=== PATIENT | male | born 1945 | race Caucasian/White ===

== ENCOUNTER 2018-09-04 20:26 | Observation (INO) ==
[2018-09-04] MEDS ORDERED: Acetaminophen 325 MG TABLET PO ONE (22:44)
[2018-09-04] MEDS ORDERED: Tdap (Boostrix) Vaccine 0.5 ML SYRINGE IM ONE (22:44)
[2018-09-04 23:25] LABS: INR 1.2; Prothrombin Time 13.7 Seconds (9.4-12.1)
[2018-09-04 23:28] LABS: Activated Partial Thrombo Time 30.8 Seconds (26.0-36.0)
--- NOTE | 2018-09-04 23:57 | Emergency Department Note ---
Disposition Clinical Impression: Hematoma, Hemoglobin decreased Disposition: Admitted As Inpatient Condition: Good Lower Extremity Injury HPI - General Chief Complaint: ED Extremity Injury, Lower Stated Complaint: right leg injury Time Seen by Provider: 09/04/18 22:34 Source: patient, family Mode of arrival: private vehicle Limitations: no limitations Nursing Notes Reviewed: Yes Vital Signs Reviewed: Yes - History of Present Illness HPI Narrative: 73-year-old male presents emergency department for evaluation of leg injury after a fall. Patient states he tripped over a bucket of his tractor and he fell, scraping his samuels and bruising his distal lateral right thigh. Patient complaining of swelling, forming ecchymosis to the area. Patient states he is on Xarelto for anticoagulation, last dose was greater than 24 hours ago. Patient denies inability to walk, numbness, tingling, paresthesia. Past medical history includes A. fib, pacer, insulin-dependent diabetes with a insulin pump - Related Data Home Medications Medication Instructions Recorded Confirmed Acebutolol HCl 200 mg PO BID 09/05/18 09/05/18 Aspirin [[place] Aspirin EC] 1 tab PO DAILY 09/05/18 09/05/18 Finasteride [Proscar] 1 tab PO HS 09/05/18 09/05/18 Furosemide [Lasix] 20 mg PO DAILY 09/05/18 09/05/18 Furosemide [Lasix] 40 mg PO HS 09/05/18 09/05/18 Insulin ASPART [Novolog] 100 unit SQ ACHS PRN 09/05/18 09/05/18 Levothyroxine Sodium [Synthroid] 0.2 mg PO DAILY 09/05/18 09/05/18 Losartan [Cozaar] 50 mg PO DAILY 09/05/18 09/05/18 Potassium Chloride [Klor-Con 10] 2 tab PO DAILY 09/05/18 09/05/18 Rivaroxaban [Xarelto] 20 mg PO HS 09/05/18 09/05/18 Venlafaxine [Effexor] 75 mg PO BID 09/05/18 09/05/18 Xalatan 1 drop BOTH EYES HS 09/05/18 09/05/18 cloNIDine HCl [CloNIDine HCl] 0.1 mg PO ONCE PRN 09/05/18 09/05/18 Allergies Allergy/AdvReac Type Severity Reaction Status Date / Time Iodinated Contrast- Oral and Allergy Rash Verified 08/11/16 14:15 IV Dye [Iodinated Contrast Media - IV Dye] All systems ED: reviewed and negative except as stated. Review of Systems: As Per HPI Past Medical History - Past Medical History Attestation: Yes The following information was validated with the patient. Source: patient Medical history: Reports: diabetes, hyperlipidemia, hypertension Psychiatric history: Reports: no psych history - Social History Smoking Status: Never smoker Smokeless Tobacco Status: No Alcohol use: Reports: none Drug use: Reports: none Physical Exam - General Limitations: no limitations General appearance: alert, in no apparent distress - Head Head exam: atraumatic, normocephalic, normal inspection - Expanded Lower Extremity Exam Hip/Pelvis exam: Present: normal inspection, full ROM Upper leg exam: Present: tenderness (Site of edema, contusion), swelling, ecchymosis. Absent: abrasion, laceration, deformity 1 - Large amount of edema, forming ecchymotic area Knee exam: Present: normal inspection, full ROM Lower leg exam: Present: tenderness, abrasion Ankle exam: Present: normal inspection, full ROM Foot/toe exam: Present: normal inspection, full ROM Neurovascular/Tendon exam: Present: normal 2-point discrimination. Absent: pulse deficit, motor deficit, sensory deficit - Neurological Exam Neurological exam: Present: alert, oriented X3 - Psychiatric Psychiatric exam: Present: normal affect, normal mood - Skin Skin exam: Present: warm, dry, intact, normal color Course Course Narrative: Well-developed male no acute distress. Respirations are easy and even. Right lateral lower shortening noted with abrasions, no active bleeding. Right distal posterior thigh noted with a large developing hematoma with circumferential edema. Patient is neurovascularly intact, full range of motion. Patient's last dose of Xarelto greater then 24 hours ago, has a 5-9 hour half- life. We will obtain coagulation studies and monitor site. - Reevaluation(s) Reevaluation #1: Reevaluation of hematoma shows proximately doubling in size, and to speak tender to touch, centralization very tight. Area now extends down to posterior knee and up to thigh, not quite completely circumferential though appears to be making progress that way. Patient continues to not be in any distress. He continues to be neurovascularly intact with peripheral pulses present and strong. We will obtain a CBC to check hemoglobin. Case discussed with attending Dr. Frias is a 1 on face time with patient is agreeable plan of care. Time: 23:55 Reevaluation #2: CBC returns with a decreased hemoglobin at 10.3 and hematocrit 30.8, Elevated MCV and elevated RDW. Review of past hemoglobin shows stabilization in the high 13s. This decreases most likely due to the acute blood loss related to the hematoma. I did discuss these findings with the patient and his family, I did recommend the patient be admitted to the hospital for monitoring of hemoglobin and hematocrit and monitoring of developing hematoma. Patient is agreeable to staying in the hospital, at this time we will start an IV, obtain a type and screen, as well as a BMP and plan admission to the hospital for observation. Patient family are agreeable. Time: 01:03 Reevaluation #3: Spoke with hospitalist Dr. Almaguer, they would like for us to consult general surgeon as well for this case due to possible need for surgery should bleeding continue. I did speak with on-call surgeon Dr. Turcios who agrees with plan for admission and states that he will consult should the need arise. We have re- paged hospitalist at this time. [id number] to hospitalist, kings to admit Time: 01:45 Vital Signs Temperature 97.7 F 09/04/18 20:42 Pulse Rate 70 09/04/18 20:42 Respiratory Rate 16 09/04/18 20:42 Blood Pressure 127/77 09/04/18 20:42 O2 Sat by Pulse Oximetry 97 09/04/18 20:42 Temperature 97.7 F 09/04/18 22:30 Pulse Rate 70 09/05/18 02:34 Respiratory Rate 16 09/05/18 02:34 Blood Pressure 125/62 09/05/18 02:34 O2 Sat by Pulse Oximetry 98 09/05/18 02:34 Oxygen Delivery Oxygen Delivery Room Air Extremity Injury, Lower - Lab Data Result diagrams: 09/05/18 00:23 09/05/18 01:00 Lab Results 09/04/18 09/05/18 09/05/18 Range/Units 23:10 00:23 01:00 WBC 8.2 (4.3-11.1) K/mcL RBC 2.75 L (4.19-5.50) M/mcL Hgb 10.8 L (12.9-16.9) g/dL Hct 30.3 L (37.5-50.1) % MCV 110.2 H (83.0-100.0) fL MCH 39.3 H (28.0-33.3) pg MCHC 35.6 H (31.6-35.5) g/dL RDW 15.8 H (11.5-14.5) % Plt Count 165 (140-400) K/mcL MPV 10.2 (9.4-12.4) fL PT 13.7 H (9.4-12.1) Seconds INR 1.2 APTT 30.8 (26.0-36.0) Seconds Sodium 135 L (136-145) mEq/L Potassium 4.2 (3.5-5.1) mEq/L Chloride 99 (98-107) mEq/L Carbon Dioxide 29 (23-29) mEq/L BUN 35 H (8-23) mg/dL Creatinine 1.82 H (0.70-1.30) mg/dL Est GFR ( Amer) 44 L (> 60) Est GFR (Non-Af Amer) 37 L (> 60) BUN/Creatinine Ratio 19 (6-26) Glucose 330 H (70-105) mg/dL Calculated Osmolality 301 H (280-300) Calcium 9.2 (8.6-10.3) mg/dL Blood Type Antibody Screen 09/05/18 Range/Units 01:00 WBC (4.3-11.1) K/mcL RBC (4.19-5.50) M/mcL Hgb (12.9-16.9) g/dL Hct (37.5-50.1) % MCV (83.0-100.0) fL MCH (28.0-33.3) pg MCHC (31.6-35.5) g/dL RDW (11.5-14.5) % Plt Count (140-400) K/mcL MPV (9.4-12.4) fL PT (9.4-12.1) Seconds INR APTT (26.0-36.0) Seconds Sodium (136-145) mEq/L Potassium (3.5-5.1) mEq/L Chloride (98-107) mEq/L Carbon Dioxide (23-29) mEq/L BUN (8-23) mg/dL Creatinine (0.70-1.30) mg/dL Est GFR ( Amer) (> 60) Est GFR (Non-Af Amer) (> 60) BUN/Creatinine Ratio (6-26) Glucose (70-105) mg/dL Calculated Osmolality (280-300) Calcium (8.6-10.3) mg/dL Blood Type A NEGATIVE Antibody Screen NEGATIVE Attestation Statement - Attestation Attestation: Dr Frias note: Pt seen in conjunction w/ ANDREW Sethi; please see her charting for complete documentation; I spent face to face time w/ the pt and agree w/ the pt's treatment and disposition; hematoma s/p fall on Xarelto; compartments soft w/o n /v deficits; imaging unremarkable; drop in hemoglobin noted vs prior labs; will admit to trend serial hemoglobins and assure no further continued drop
[2018-09-05 00:33] LABS: Hematocrit 30.3 % (37.5-50.1); Hemoglobin 10.8 g/dL (12.9-16.9); Mean Corpuscular HGB Conc 35.6 g/dL (31.6-35.5); Mean Corpuscular Hemoglobin 39.3 pg (28.0-33.3); Mean Corpuscular Volume 110.2 fL (83.0-100.0); Mean Platelet Volume 10.2 fL (9.4-12.4); Platelet Count 165 K/mcL (140-400); Red Blood Count 2.75 M/mcL (4.19-5.50); Red Cell Distribution Width 15.8 % (11.5-14.5)
[2018-09-05 02:06] LABS: Calcium 9.2 mg/dL (8.6-10.3); Potassium 4.2 mEq/L (3.5-5.1)
[2018-09-05] MEDS ORDERED: Naloxone 0.4 MG/ML INJ IVP PRN ×2 (07:39→07:41)
[2018-09-05] MEDS ORDERED: *HR* OxyCODONE Immed Rel 5 MG TABLET PO PRN (07:41)
[2018-09-05] MEDS ORDERED: *HR* HYDROcodone/Acet 5/325 mg TABLET PO PRN (07:41)
[2018-09-05] MEDS ORDERED: INSULIN ASPART 100 UNIT SQ PRN (07:42)
--- NOTE | 2018-09-05 07:56 | General Surgery Consult Note ---
Date of Encounter: 09/05/18 Time of Encounter: 07:53 Assessment and Plan (1) Hematoma Current Visit: Yes Status: Acute 73M on xarelto for atrial fibrillation s/p mechanical fall with subsequent hematoma to R lateral thigh and abrasions to RLE; motor sensory intact, able to walk without difficulty; trend h/h - transfuse per primary; diet as tolerated if able to walk without difficulty and h/h stable, okay to discharge from surgery perspective restart xarelto after h/h stable and per primary team follw up in my clinic 2 weeks after discharge no acute surgery at present; general surgery will sign off; please call with any new questions or concerns History of Present Illness Consult date: 09/05/18 Reason for consult: other (RLE hematoma) History of present illness: 73-year-old h/o DM, on insulin pump, HLD, HTN, atrial fibrillation, on xarelto, who prents after mechanical fall resulting in abrasions to RLE as well as hematoma to R lateral thigh; There was swelling and bruising to the area. He does not report any parasthesia and he is able to bear weight and walk without difficulty. It was felt that the hematoma was increasing in size. General surgery was consulted for management recommendations. Past Med Surg Social Fam HX - Past Medical History Medical history: atrial fibrillation, diabetes, hyperlipidemia, hypertension Psychiatric history: no psych history - Past Surgical History Surgical History: hip replacement, pacemaker/AICD Additional surgical history: INSULIN PUMP - Social History Smoking Status: Former smoker Smokeless Tobacco Status: No Alcohol use: occasionally Drug use: none - Additional Family History Additional family history: non contributory Medications and Allergies Acebutolol HCl 200 mg PO BID 09/05/18 [History] Aspirin [[place] Aspirin EC] 1 tab PO DAILY 09/05/18 [History] Finasteride [Proscar] 1 tab PO HS 09/05/18 [History] Furosemide [Lasix] 20 mg PO DAILY 09/05/18 [History] Furosemide [Lasix] 40 mg PO HS 09/05/18 [History] Insulin ASPART [Novolog] 100 unit SQ ACHS PRN 09/05/18 [History] Levothyroxine Sodium [Synthroid] 0.2 mg PO DAILY 09/05/18 [History] Losartan [Cozaar] 50 mg PO DAILY 09/05/18 [History] Potassium Chloride [Klor-Con 10] 2 tab PO DAILY 09/05/18 [History] Rivaroxaban [Xarelto] 20 mg PO HS 09/05/18 [History] Venlafaxine [Effexor] 75 mg PO BID 09/05/18 [History] Xalatan 1 drop BOTH EYES HS 09/05/18 [History] cloNIDine HCl [CloNIDine HCl] 0.1 mg PO ONCE PRN 09/05/18 [History] 3 Allergy/AdvReac Type Severity Reaction Status Date / Time Iodinated Contrast- Oral and Allergy Rash Verified 08/11/16 14:15 IV Dye [Iodinated Contrast Media - IV Dye] Review of Systems All systems PM: 12 point ROS negative besides HPI findings General Surgery Exam Initial Vital Signs Temp Pulse Resp BP Pulse Ox 97.7 F 70 16 127/77 97 09/04/18 20:42 09/04/18 20:42 09/04/18 20:42 09/04/18 20:42 09/04/18 20:42 - General physical appearance no distress - Eyes normal ocular movement - ENT normocephalic - Neck no lymphadectomy - Respiratory normal expansion, normal respiratory effort - Cardiovascular Cardiovascular exam: Present: RRR - Abdomen Abdomen general surgery: Present: soft, non tender - Integumentary Integumentary general surgery: Present: warm and dry, no abnormal pigmentation - Neurologic Present: CN 2-12 grossly intact, other (motorsensory intact in lower extremity bilaterally) - Musculoskeletal Present: normal gait, other (ecchymosis to R lateral thigh; obvious hematoma measuring a~ 7cm x 6cm in size; non tender on exam; abrasions to RLE) - Psychiatric Psychiatric general surgery: Present: A&Ox3 Exam Initial Vital Signs Temp Pulse Resp BP Pulse Ox 97.7 F 70 16 127/77 97 09/04/18 20:42 09/04/18 20:42 09/04/18 20:42 09/04/18 20:42 09/04/18 20:42 Results - Labs 09/05/18 00:23 09/05/18 01:00 Abnormal lab results RBC 2.75 M/mcL (4.19-5.50) L 09/05/18 00:23 Hgb 10.8 g/dL (12.9-16.9) L 09/05/18 00:23 Hct 30.3 % (37.5-50.1) L 09/05/18 00:23 MCV 110.2 fL (83.0-100.0) H 09/05/18 00:23 MCH 39.3 pg (28.0-33.3) H 09/05/18 00:23 MCHC 35.6 g/dL (31.6-35.5) H 09/05/18 00:23 RDW 15.8 % (11.5-14.5) H 09/05/18 00:23 PT 13.7 Seconds (9.4-12.1) H 09/04/18 23:10 Sodium 135 mEq/L (136-145) L 09/05/18 01:00 BUN 35 mg/dL (8-23) H 09/05/18 01:00 Creatinine 1.82 mg/dL (0.70-1.30) H 09/05/18 01:00 Est GFR ( Amer) 44 (> 60) L 09/05/18 01:00 Est GFR (Non-Af Amer) 37 (> 60) L 09/05/18 01:00 Glucose 330 mg/dL (70-105) H 09/05/18 01:00 Calculated Osmolality 301 (280-300) H 09/05/18 01:00 All other labs normal. - Imaging Additional studies: x ray o RLE; no fracture appreciated Consult Discharge Plan - Plan Referrals: Patel Valladares MD [Primary Care Provider] -
[2018-09-05 08:34] LABS: Hematocrit 32.2 % (37.5-50.1); Hemoglobin 11.3 g/dL (12.9-16.9)
--- NOTE | 2018-09-05 08:47 | Internal Med History&Physical ---
Date of Encounter: 09/05/18 Time of Encounter: 08:30 Internal Medicine - H&P: HPI Chief complaint: R leg swelling Admitted From: Home History of present illness: Mr. Salmon is a 73 year old male with past neck or history of diabetes, atrial fibrillation status post pacemaker insertion on Xarelto, CAD, presented to the ED after sustaining a fall. He states that he tripped over a bucket of his tractor and fell to his right side which resulted in abrasion over the lateral aspect of his right distal thigh. Over the course of few hours, he noticed that it was significantly increasing in size with extension of bruises hence came to the ED for further evaluation. Denies any chest pain, palpitation, shortness of breath, cough, sputum production, lightheadedness, orthopnea, or PND. Denies any focal weakness/numbness, dysarthria, facial droop, or dysphagia. No fever/chills, nausea/vomiting, or sick contacts. In the ED, he was afebrile and hemodynamically stable. Labwork showed hemoglobin of 10.8 (which is a drop from his baseline 13), Cr 1.82 (baseline ~ 1.4-5), with normal coags/Plt count. X-ray of the femur was unremarkable. He was admitted for further management with surgical consult. Past Med Surg Social Fam HX - Past Medical History Attestation: Yes The following information was validated with the patient. Medical history: atrial fibrillation, diabetes, hyperlipidemia, hypertension Psychiatric history: no psych history - Past Surgical History Surgical History: hip replacement, pacemaker/AICD Additional surgical history: INSULIN PUMP - Social History Smoking Status: Former smoker Smokeless Tobacco Status: No Alcohol use: occasionally Drug use: none Internal Medicine - H&P: Meds Acebutolol HCl 200 mg PO QAM 09/05/18 [History] Acebutolol HCl 400 mg PO QPM 09/05/18 [History] Aspirin [[place] Aspirin EC] 1 tab PO DAILY 09/05/18 [History] Atorvastatin [Lipitor] 40 mg PO HS 09/05/18 [History] Calcitriol [Rocaltrol] 0.25 mcg PO DAILY 09/05/18 [History] Finasteride [Proscar] 5 mg PO HS 09/05/18 [History] Furosemide [Lasix] 40 mg PO BID 09/05/18 [History] Latanoprost [Xalatan] 1 drop BOTH EYES HS 09/05/18 [History] Levothyroxine Sodium [Synthroid] 0.2 mg PO DAILY 09/05/18 [History] Losartan [Cozaar] 50 mg PO BID 09/05/18 [History] Potassium Chloride [Klor-Con 10] 20 meq PO DAILY 09/05/18 [History] Rivaroxaban [Xarelto] 15 mg PO DAILY 09/05/18 [History] Subcutaneous Insulin Pump [T:Slim] 1 each SQ AD 09/05/18 [History] Venlafaxine [Effexor] 75 mg PO BID 09/05/18 [History] cloNIDine HCl [CloNIDine HCl] 0.1 mg PO DAILY PRN 09/05/18 [History] 3 Allergy/AdvReac Type Severity Reaction Status Date / Time Iodinated Contrast- Oral and Allergy Rash Verified 08/11/16 14:15 IV Dye [Iodinated Contrast Media - IV Dye] All Systems PM: A 10-system review of systems was performed and is negative for pertinent findings except as documented above in the HPI. - Constitutional Vitals: Temp Pulse Resp BP Pulse Ox 98.1 F 71 16 107/64 94 09/05/18 07:09 09/05/18 07:09 09/05/18 07:09 09/05/18 07:09 09/05/18 07:09 Exam: General: Alert and oriented, not in acute distress. HEENT:EOM, pupils equal, round and reactive. Cardiovascular:Normal S1 & S2, No JVD. Lungs: clear to auscultation, no wheezes/rales Abdomen:Soft, non-tender, no rigidity. Extremities:Localized swelling 7x7 cm over the lateral aspect of distal R thigh , associated with ecchymosis extending down to his calf. Firm on palpation but non-tender. No surrounding erythema. No discharges noted. Neurovascularly intact distally Neurological: CN II-XII intact, power and sensation fully intact in all 4 limbs. No cerebellar signs, pronator drift -ve, Babinski downgoing bilaterally Skin: No other rash noted Pulses:Carotid and radial pulses normal +2. Rest of the physical exam is non contributory Internal Med - H&P Results - Labs CBC & Chem 7: 09/05/18 08:06 09/05/18 01:00 Labs: Short CBC 09/05/18 Range/Units 08:06 Hgb 11.3 L (12.9-16.9) g/dL Hct 32.2 L (37.5-50.1) % - Assessment and plan (1) Traumatic hematoma of right lower leg Current Visit: Yes Status: Acute Assessment and plan: Following a mechanical fall, On xarelto for A. fib expanding hematoma with slight drop in Hb, remains hemodynamically stable no evidence of compartment syndrome holding xarelto, jeniffer the site of hematoma surgery eval appreciated if worsening, will consider CT Qualifiers: Encounter type: initial encounter Qualified Code(s): S80.11XA - Contusion of right lower leg, initial encounter (2) [id number] kidney injury Current Visit: Yes Status: Acute Assessment and plan: Slightly elevated creatinine of 1.82 (Baseline 1.4-5) likely due to pre-renal with volume loss from hematoma IVF and monitor Avoid nephrotoxins Qualifiers: Acute renal failure type: unspecified Chronic kidney disease stage: stage 3 (moderate) Qualified Code(s): N17.9 - Acute kidney failure, unspecified; N18.3 - Chronic kidney disease, stage 3 (moderate) (3) Diabetes Current Visit: Yes Status: Acute Assessment and plan: On insulin pump at home, basal rate of 1.5U/hr plus sliding scale coverage continue ADA diet, accuchecks AC+HS Qualifiers: Diabetes mellitus type: other specified (including NORMA) Diabetes mellitus snf insulin use: with termite treater use Diabetes mellitus complication status: with unspecified complications Qualified Code(s): E13.8 - Other specified diabetes mellitus with unspecified complications; Z79.4 - meterman ( current) use of insulin (4) Atrial fibrillation Current Visit: Yes Status: Acute Assessment and plan: Status post pacemaker insertion Holding Xarelto as above Qualifiers: Atrial fibrillation type: unspecified Qualified Code(s): I48.91 - Unspecified atrial fibrillation (5) DVT prophylaxis Current Visit: Yes Status: Acute Assessment and plan: SCD - Time Spent With Patient Total time spent is greater than 50% in coordination of care (as documented) at patient's floor/unit and/or counseling patient:
[2018-09-05] MEDS ORDERED: D5% in Water 1,000 ML IVC PRN (08:54)
[2018-09-05] MEDS ORDERED: *HR* Dextrose 50 % in Water (Syg) 50 ML SYRINGE IVP PRN (08:54)
[2018-09-05] MEDS ORDERED: Dextrose Gel 15 GM/37.5 ML TUBE PO PRN ×2 (08:54)
[2018-09-05] MEDS ORDERED: NON-FORMULARY MEDICATION 1 EACH EACH (Subcutaneous Insulin Pump [T:Slim] 1 EACH) SQ SCH (09:00)
[2018-09-05] MEDS: 0.9 % Sodium Chloride 1,000 ML IVC SCH ×2 (09:55→19:34)
[2018-09-05] MEDS: Aspirin Enteric Coated 81 MG Tablet PO SCH (09:55)
[2018-09-05 11:24] LABS: Folate > 22.3 ng/mL (3.0-16.0); Vitamin B12 < 50 pg/mL (250-1100)
[2018-09-05] MEDS: Cyanocobalamin (B-12) 1,000 MCG TABLET PO SCH (13:16)
[2018-09-05] MEDS: INSULIN PUMP SQ SCH (13:28)
[2018-09-05] MEDS ORDERED: Latanoprost 2.5 ML BOTTLE BOTH EYES SCH (21:00)
[2018-09-05] MEDS ORDERED: Finasteride 5 MG TABLET PO SCH (21:00)
[2018-09-06] MEDS: Acetaminophen 325 MG TABLET PO PRN ×2 (01:40→08:28)
[2018-09-06 08:16] LABS: Prothrombin Time 11.3 Seconds (9.4-12.1)
[2018-09-06] MEDS: Cyanocobalamin (B-12) 1,000 MCG TABLET PO SCH (08:28)
[2018-09-06] MEDS: Aspirin Enteric Coated 81 MG Tablet PO SCH (08:28)
[2018-09-06 08:31] LABS: Calcium 8.8 mg/dL (8.6-10.3); Magnesium 2.1 mg/dL (1.6-2.6); Potassium 3.6 mEq/L (3.5-5.1)
[2018-09-06] MEDS: INSULIN PUMP SQ SCH (08:31)
[2018-09-06 09:11] LABS: Hematocrit 29.5 % (37.5-50.1); Hemoglobin 10.3 g/dL (12.9-16.9); Mean Corpuscular HGB Conc 34.9 g/dL (31.6-35.5); Mean Corpuscular Hemoglobin 39.3 pg (28.0-33.3); Mean Corpuscular Volume 112.6 fL (83.0-100.0); Mean Platelet Volume 10.6 fL (9.4-12.4); Platelet Count 189 K/mcL (140-400); Red Blood Count 2.62 M/mcL (4.19-5.50); Red Cell Distribution Width 15.6 % (11.5-14.5)
[2018-09-06 11:58] VITALS: BP 148/87
--- NOTE | 2018-09-06 14:03 | Discharge Summary ---
- NOTES TO OUTPATIENT PROVIDER Notes to Outpatient Provider: Follow up with PCP within a week to have a CBC drawn. Make and appointment to see surgery in 2 weeks. Date of Encounter: 09/06/18 Time of Encounter: 13:59 - Discharge Diagnosis (1) Traumatic hematoma of right lower leg Priority: Primary Status: Resolved Assessment and Plan: CT/CT LE RT wo con IMPRESSION: 1. From the mid to distal thigh there is anterolateral edema and free hemorrhage with a lateral distal thigh 10.7 cm subacute hematoma which corresponds with the soft tissue mass identified on the prior radiographs. 2. Lower leg subcutaneous edema which progresses distally. 3. The muscular compartments of the right lower extremity demonstrate no hematoma or edema. 4. 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 Posterior ossified intra-articular bodies present. No effusion or acute osseous abnormality. Qualifiers: Encounter type: initial encounter Qualified Code(s): S80.11XA - Contusion of right lower leg, initial encounter (2) Diabetes Priority: Secondary Status: Chronic Qualifiers: Diabetes mellitus type: other specified (including NORMA) Diabetes mellitus long chain beamer insulin use: with shelter use Diabetes mellitus complication status: with unspecified complications Qualified Code(s): E13.8 - Other specified diabetes mellitus with unspecified complications; Z79.4 - half-way ( current) use of insulin (3) Atrial fibrillation Priority: Secondary Status: Chronic Qualifiers: Atrial fibrillation type: unspecified Qualified Code(s): I48.91 - Unspecified atrial fibrillation (4) [id number] kidney injury Priority: Secondary Status: Chronic Qualifiers: Acute renal failure type: unspecified Chronic kidney disease stage: stage 3 (moderate) Qualified Code(s): N17.9 - Acute kidney failure, unspecified; N18.3 - Chronic kidney disease, stage 3 (moderate) (5) DVT prophylaxis Priority: Secondary Status: Chronic Hospital course: Mr. Salmon is a 73 year old male past medical history of diabetes, atrial fibrillation status post pacemaker insertion on Xarelto, CAD, presented to the ED after sustaining a fall. He states that he tripped over a bucket of his tractor and fell to his right side which resulted in abrasion over the lateral aspect of his right distal thigh. Over the course of few hours, he noticed that it was significantly increasing in size with extension of bruises hence came to the ED for further evaluation. Patient found to have a hematoma in the right lower ext. CT of the lower extr done: showed In the lateral subcutaneous region of the distal thigh there is a fusiform hyperdense mass measuring 3.1 x 7.7 x 10.7 cm. Donna consulted and recommended that patient could be discharged if H& H remains stable as patient was ambulating without difficulty, the hematoma was not expanding and no surgical intervention was indicated. H&H for 10.8& 30.3 on presentation, 11.3&32.2 and 10.3&29.5. edema of the patient lower extremity has decreased in size. Patient reports no pain in the lower extremity. As H&H has been stable and hematoma size has been decreasing. Patient will be discharged home. Recommended to hold Xarelto until he gets a repeat blood work within a week at his primary care office. Recommended to follow up with surgery in 2 weeks, as per surgery recommendations. - Time Spent with Patient Total time spent providing and/or coordinating discharge services: Less than 30 minutes - Discharge Medications Prescriptions: Cyanocobalamin (B-12) [Vitamin B12] 1,000 mcg PO DAILY 30 Days #30 tablet Home Medications: Acebutolol HCl 200 mg PO QAM 09/05/18 [History] Acebutolol HCl 400 mg PO QPM 09/05/18 [History] Aspirin [Amo Aspirin EC] 1 tab PO DAILY 09/05/18 [History] Atorvastatin [Lipitor] 40 mg PO HS 09/05/18 [History] Calcitriol [Rocaltrol] 0.25 mcg PO DAILY 09/05/18 [History] Finasteride [Proscar] 5 mg PO HS 09/05/18 [History] Furosemide [Lasix] 40 mg PO BID 09/05/18 [History] Latanoprost [Xalatan] 1 drop BOTH EYES HS 09/05/18 [History] Levothyroxine Sodium [Synthroid] 0.2 mg PO DAILY 09/05/18 [History] Losartan [Cozaar] 50 mg PO BID 09/05/18 [History] Potassium Chloride [Klor-Con 10] 20 meq PO DAILY 09/05/18 [History] Subcutaneous Insulin Pump [T:Slim] 1 each SQ AD 09/05/18 [History] Venlafaxine [Effexor] 75 mg PO BID 09/05/18 [History] cloNIDine HCl [CloNIDine HCl] 0.1 mg PO DAILY PRN 09/05/18 [History] Cyanocobalamin (B-12) [Vitamin B12] 1,000 mcg PO DAILY 30 Days #30 tablet [Rx] Allergies/Adverse Reactions: 3 Allergy/AdvReac Type Severity Reaction Status Date / Time Iodinated Contrast- Oral and Allergy Rash Verified 08/11/16 14:15 IV Dye [Iodinated Contrast Media - IV Dye] Date of admission: 09/05/18 02:33 Primary care physician: Patel Valladares MD Consults: 09/05/18 08:13 Consult to Surgery [CONS] Routine Consulting Provider: [facility] Reason for Consult: R leg hematoma, consulted in the ED Call Completed: Yes - Constitutional Vitals: Temp Pulse Resp BP Pulse Ox 97.5 F L 70 16 148/87 99 09/06/18 11:57 09/06/18 11:57 09/06/18 11:57 09/06/18 11:57 09/06/18 11:57 Exam: General: Alert and oriented, not in acute distress. HEENT:EOM, pupils equal, round and reactive. Cardiovascular:RRR, Normal S1 & S2, No JVD. Lungs: clear to auscultation, no wheezes/rales Abdomen: Obese, Soft, non-tender, no rigidity. Extremities: Localized swelling 7x7 cm over the lateral aspect of distal R thigh , associated with ecchymosis extending down to his calf. Firm on palpation but non-tender. No surrounding erythema. No discharges noted. Neurovascularly intact distally Neurological: CN II-XII intact, power and sensation fully intact in all 4 limbs. Skin: No other rash noted Rest of the physical exam is non contributory - Patient Status Disposition: Home, Self-Care Condition: Good Functional capacity at discharge: independent ambulation Overall status at discharge: patient is progressing back to baseline - Discharge Instructions Follow Up With: Patel Valladares MD [Primary Care Provider] - - Diet and Activity Activity: resume usual activities as tolerated Diet: diabetic diet, low salt diet
== END 2018-09-06 15:56 | disposition home or self-care (01) ==
LOC: 3BNU 20:26 → EMEROOARM 20:26 → SUATTDRO 09-05 02:33 → 3BNU 09-05 02:47
PROVIDERS: ADMIT Family Medicine; ATTEND Internal Medicine